=== PATIENT | male | born 1940 ===

== ENCOUNTER → 2024-04-14 | Day surgery (SDC) | payer OTHER ==
[2024-04-03 10:30] LABS: HEMATOCRIT 46.1 % (39.0-48.0); MEAN CELL VOLUME 90.7 fL (80.0-100.00); MEAN CORPUSCULAR HEMOGLOBIN 31.5 pg (27.00-32.0); MEAN CORPUSCULAR HGB CONC 34.7 g/dl (32.0-36.0); PLATELET COUNT 178 K/uL (150-450); RED BLOOD COUNT 5.09 M/uL (4.00-6.00); RED CELL DISTRIBUTION WIDTH 13.3 % (11.5-14.5)
[2024-04-03 10:40] LABS: URINE APPEARANCE Clear; URINE BILIRRUBIN Negative (NEGATIVE); URINE BLOOD Negative; URINE COLOR Yellow; URINE GLUCOSE Negative (NEGATIVE); URINE KETONE Negative (NEGATIVE); URINE LEUKOCYTE Negative; URINE NITRATE Negative; URINE UROBILINOGEN 0.2 E.U./dl
[2024-04-03 10:45] LABS: URINE BACTERIA 74.3 uL (0.0-1933); URINE EPITHELIAL CELLS 4.7 uL (0.0-38.8); URINE WBC 3.7 uL (0.0-23.2)
[2024-04-03 10:52] LABS: PARTIAL THROMBOPLASTIN TIME 27.9 SECONDS (22.0-34.0); PROTHROMBIN TIME 10.9 SECONDS (9.0-11.5)
[2024-04-03 11:05] LABS: URINE CAST 0.15 uL (0.0-1.40); URINE PROTEIN 100 (NEGATIVE)
[2024-04-03 11:24] LABS: ALBUMIN 4.2 gm/dL (3.4-5.0); BILIRUBIN TOTAL 0.79 mg/dL (0.3-1.2); CALCIUM 9.8 mg/dL (8.5-10.1); CREATININE SERUM 1.14 mg/dL (0.70-1.30); GFR 61.35; GLOBULINA 3.2 G/DL (2.4-3.5); POTASSIUM 4.35 mEq/L (3.5-5.1); TOTAL PROTEIN 7.4 gm/dL (6.4-8.2)
[~2024-04-14] MED LIST: AVAPRO300 MG PO; CARVEDILOL3.125 MG; CEFAZOLIN SODIUM 1,000 MG VIAL IV ONE; CRESTOR40 MG PO; MORPHINE SULFATE 2 MG/ML CARTRIDGE IV ONE; TIAZAC240 MG; hydrALAZINE HCL 20 MG VIAL IV ONE
== END | disposition home or self-care (01) ==
LOC: ADM 04-03 10:00 → CIR.AMB 05:00
PROVIDERS: ATTEND Surgery
DX: K40.30 Unilateral inguinal hernia, with obstruction, without gangrene, not specified as recurrent (principal)